=== PATIENT | female | born 1935 | race Caucasian/White ===

== ENCOUNTER → 2017-12-25 | Outpatient (CLI) | payer MEDICARE | END | disposition home or self-care (01) | LOC: CFH 13:05 | PROVIDERS: ATTEND Internal Medicine Cardiovascular Disease | DX: I08.3 Combined rheumatic disorders of mitral, aortic and tricuspid valves (principal); I10 Essential (primary) hypertension; Z95.0 Presence of cardiac pacemaker | CPT/HCPCS: 0399T; 93306 ==

== ENCOUNTER → 2020-06-26 | Outpatient (CLI) | payer MEDICARE ==
[~2020-06-26] MED LIST: BIOT25005 PO; BRIM5DRO3 LEFTEYE; CA C1TAB62 PO; CLON0.1T22 PO; DABI150C PO; DIGO125T85 PO; DILT-88 PO; DOXA4TAB3 PO; ENAL20TA9 PO; METO25TA91 PO; MULT1TAB57 PO; OLOP2.5D6 EACHEYE; OMEG1CAP23 PO; POTA20TA6 PO; TORS20TA2 PO; lidex TP
== END | disposition home or self-care (01) ==
LOC: CFH 12:38
PROVIDERS: ATTEND Physician Assistant Medical
DX: I08.8 Other rheumatic multiple valve diseases (principal); I11.9 Hypertensive heart disease without heart failure; I27.20 Pulmonary hypertension, unspecified; R06.00 Dyspnea, unspecified
CPT/HCPCS: 93306